=== PATIENT | male | born 1990 | race Caucasian/White ===

== ENCOUNTER 2019-03-05 15:16 | Emergency (ER) | payer SELFPAY ==
[~2019-03-05] VITALS: Ht 170.2 cm; Wt 88.0 kg
[2019-03-05] MEDS ORDERED: BACITRACIN ZINC OINT UDPKT TOP ONE (18:30)
[2019-03-05] MEDS ORDERED: HYDROCODONE/ACETAMINOPHEN 5/325MG TABLET PO ONE (18:30)
[2019-03-05] MEDS ORDERED: LIDOCAINE HCL/PF 1% 10 MG/ML 5ML VIAL IJ ONE (18:30)
[2019-03-05] MEDS ORDERED: SODIUM CHLORIDE 0.9% 1,000 ML IV ONE (18:45)
[2019-03-05 19:21] LABS: BASOPHILS % 0.6 % (0.0-2.0); EOSINOPHILS % 0.3 % (0.0-5.0); HEMATOCRIT. 44.5 % (42.0-52.0); LYMPHOCYTES % 9.2 % (20.0-50.0); MEAN CORPUSCULAR HEMOGLOBIN 30.6 pg (28.0-32.0); MEAN CORPUSCULAR VOLUME 90.8 fL (80.0-94.0); MONOCYTES % 6.6 % (2.0-8.0); NEUTROPHILS % 83.3 % (40.0-76.0); PLATELET 228 x1000/uL (130-400); RED BLOOD CELL COUNT 4.91 mill/uL (4.7-6.1); RED CELL DISTRIBUTION WIDTH 13.3 % (11.6-14.6)
[2019-03-05 19:22] LABS: CHLORIDE 102 mEq/L (98-107)
[2019-03-05] MEDS ORDERED: BACITRACIN 15GM TUBE TOP NR (19:45)
[2019-03-05] MEDS ORDERED: KETOROLAC 30MG/ML VIAL IM ONE (20:00)
[2019-03-05] MEDS ORDERED: SULFAMETHOXAZOLE/TRIMETHOPRIM 400/80MG TAB PO ONE (21:00)
[2019-03-05] MEDS ORDERED: CEPHALEXIN 250MG CAPSULE PO ONE (21:00)
[2019-03-05 21:25] VITALS: BP 121/69
== END 2019-03-05 21:36 | disposition home or self-care (01) ==
LOC: ER 15:16
DX: L02.31 Cutaneous abscess of buttock (principal); F17.210 Nicotine dependence, cigarettes, uncomplicated
CPT/HCPCS: 10060; 36415; 80048; 83605; 85025; 87040; 87070; 87077; 87205; 96372; 99284; J1885; J3490; J7030

== ENCOUNTER 2019-03-07 09:42 | Emergency (ER) | payer MEDICAID ==
[~2019-03-07] VITALS: Ht 170.2 cm; Wt 95.0 kg
[2019-03-07] MEDS ORDERED: SULFAMETHOXAZOLE/TRIMETHOPRIM 800/160MG TABLET PO ONE (12:30)
[2019-03-07] MEDS ORDERED: CEPHALEXIN 250MG CAPSULE PO ONE (12:30)
[2019-03-07 15:05] VITALS: BP 129/77
== END 2019-03-07 15:25 | disposition home or self-care (01) ==
LOC: ER 09:47
DX: Z48.00 Encounter for change or removal of nonsurgical wound dressing (principal); L05.01 Pilonidal cyst with abscess; F17.200 Nicotine dependence, unspecified, uncomplicated; Z71.6 Tobacco abuse counseling
CPT/HCPCS: 99283; 99406